=== PATIENT | male | born 1985 | race Caucasian/White ===

== ENCOUNTER 2018-05-13 22:39 | Emergency (ER) | payer BC ==
--- NOTE | 2018-05-13 22:54 | EDPHY ---
H & P Stated Complaint: R ankle swelling Source: Patient Exam Limitations: No limitations - Personal History Current Tetanus/Diphtheria Vaccine: Yes Current Tetanus Diphtheria and Acellular Pertussis (TDAP): Yes - Medical/Surgical History Hx Asthma: No Hx Chronic Respiratory Disease: No Hx Diabetes: No Hx Cardiac Disease: No Hx Renal Disease: No Hx Cirrhosis: No Hx Alcoholism: No Hx HIV/AIDS: No Hx Splenectomy or Spleen Trauma: No Other PMH: MRSA infection - Social History Smoking Status: Current every day smoker Time Seen by Provider: 05/13/18 22:48 HPI/ROS: HPI: This is a 33-year-old male who presents with Chief Complaint: Right ankle swelling Location: Right lateral ankle Quality: Swelling and redness Duration: 1 week Signs and Symptoms: No bleeding, no radiation, no numbness, no weakness, no tingling, no incontinence, + decreased range of motion, + swelling, + pain, no fever Timing: Worsening Severity: Moderate to severe Context: Patient presents with an infection on his right lateral ankle that has been worsening over the last week. He reports that there is redness, warmth , tenderness and now decreased range of motion for the last 2 days. He was seen by urgent care yesterday and started and now antibiotic but he does not remember the name. He reports that the antibiotic is not working but he is also unsure of how many days he took the antibiotic. Denies any trauma, injury. He recently traveled back and forth from [place]. Reports some right calf swelling and right calf pain. Denies fevers, discharge. Patient has a history of MRSA infection. Modifying Factors: Antibiotic, unknown name Comment: ROS: A comprehensive 10 system review of systems is otherwise negative aside from elements mentioned in the history of present illness. MEDICAL/SURGICAL/SOCIAL HISTORY: Medical history: MRSA infection, claustrophobia Surgical history: Denies Social history: Originally from [place]. Current every day smoker. CONSTITUTIONAL: Nontoxic-appearing adult white male, awake and alert, no obvious distress HEENT: Atraumatic and normocephalic. NECK: supple EXTREMITIES: 2/2 p.o. pulses, strength 5/5, right Ankle: Lateral malleolus shows moderate erythema and swelling with tenderness surrounding the area; no streaking appreciated. Plantar flexion to 50, dorsiflexion to 20. Foot inversion to 35 degree. No tenderness/swelling Anterior talofibular ligament. No tenderness/swelling Calcaneofibular ligament, no tenderness/swelling posterior talofibular ligament, no tenderness/swelling posterior inferior tibiofibular ligament. Achilles tendon intact. Mild Homans sign. Right calf is twice the size of the left calf. DIP/PIP/MCP flexion/extension intact with good light touch sensation. no deformities, no clubbing, no cyanosis or edema. NEUROLOGICAL: no focal neuro deficits. GCS 15. Light touch sensation intact. SKIN: Warm and dry, scattered annular lesions noted to bilateral lower extremities; no active drainage or bleeding.. Good capillary refill. (Myrtle Ramos) Constitutional: Initial Vital Signs Temperature (C) 36.7 C 05/13/18 22:43 Heart Rate 90 05/13/18 22:43 Respiratory Rate 16 05/13/18 22:43 Blood Pressure 129/72 H 05/13/18 22:43 O2 Sat (%) 96 05/13/18 22:43 O2 Delivery Mode Room Air Allergies/Adverse Reactions: No Known Allergies Allergy (Unverified 05/13/18 22:46) Home Medications: Medication Instructions Recorded Cephalexin [Keflex (*)] 500 mg PO TID #21 cap 05/13/18 Sulfamethox/Tmp 800/160 mg 1 tab PO BID #14 tab 05/13/18 [Bactrim Ds] Medical Decision Making - Diagnostics Imaging Results: Imaging Impressions Ankle X-Ray 05/13/18 22:56 Impression: 1. No acute osseous abnormality seen right ankle. 2. Soft tissue swelling laterally compatible with ankle sprain. Extremity Venous Study 05/13/18 22:56 Impression: No deep venous thrombosis in the right lower extremity. Findings discussed with Myrtle Ramos PAC at 23:46 hour, 05/13/2018. Procedures: Procedure: Splint placement. A right walking boot was applied by the Emergency Room low voltage technician. After application of the splint I returned and re-examined the patient. The splint was adequately immobilizing the joint and distal to the splint the patient's circulation and sensation was intact. (Myrtle Ramos) ED Course/Re-evaluation: Vital signs reviewed and stable upon arrival. No systemic signs. IV access and laboratory studies including lactic acid obtain. Right lower extremity ultrasound right ankle x-ray ordered. Patient is refusing admission for IV antibiotics despite my recommendation as failure of outpatient treatment. Will give IV vancomycin and IV Ancef in the emergency room. 2350: Called by radiologist who advised that right lower extremity ultrasound is negative for DVT. Laboratory studies reviewed and show WBC of 11.5, lactic acid 1.4, ESR 10, CRP 27.6, no signs of electrolyte imbalance/acute kidney injury. 2355: Right ankle x-ray my read shows no fracture, dislocation. + Soft tissue swelling laterally compatible with ankle sprain. Placed in walking boot, given Keflex and Bactrim, patient [facility] or return to the emergency room in 2-3 days for wound check if any worsening of symptoms. At discharge, I offered patient admission again and he refused due to "I hate needles and I am claustrophobic." He understands that his infection may progress and he could become septic or even . He is alert and oriented x4. No signs of neurovascular compromise/tenting of skin/compartment syndrome/ extremities and joints examined above and below area of concern and are neurovascularly intact. This patient was seen under the supervision of my secondary supervising physician. I evaluated care for this patient independently. Discussed this patient with Dr. Baez. (Myrtle Ramos) PHYSICIAN DOCUMENTATION: The patient was evaluated and managed by the Physician Environmental Protection Specialist. My co- signature indicates that I have reviewed this chart and I agree with the findings and plan of care as documented. I am the secondary supervising physician. (Brianda Baez) Differential Diagnosis: Ankle injury differential diagnosis includes but is not limited to tibia fracture, fibula fracture, metatarsal fracture, LisFranc fracture, achilles tendon rupture, sprain. (Myrtle Ramos) - Data Points Laboratory Results: Laboratory Results 05/13/18 23:04 05/13/18 23:04 05/13/18 05/13/18 05/13/18 23:04 23:04 23:04 WBC 11.15 10^3/uL H 10^3/uL (3.80-9.50) RBC 4.27 10^6/uL L 10^6/uL (4.40-6.38) Hgb 13.7 g/dL g/dL (13.7-17.5) Hct 40.1 % % (40.0-51.0) MCV 93.9 fL fL (81.5-99.8) MCH 32.1 pg pg (27.9-34.1) MCHC 34.2 g/dL g/dL (32.4-36.7) RDW 12.6 % % (11.5-15.2) Plt Count 416 10^3/uL H 10^3/uL (150-400) MPV 9.2 fL fL (8.7-11.7) Neut % (Auto) 59.5 % % (39.3-74.2) Lymph % (Auto) 29.7 % % (15.0-45.0) Union % (Auto) 8.3 % % (4.5-13.0) Eos % (Auto) 1.3 % % (0.6-7.6) Baso % (Auto) 0.4 % % (0.3-1.7) Nucleat RBC Rel Count 0.0 % % (0.0-0.2) Absolute Neuts (auto) 6.64 10^3/uL H 10^3/uL (1.70-6.50) Absolute Lymphs (auto) 3.31 10^3/uL H 10^3/uL (1.00-3.00) Absolute Monos (auto) 0.92 10^3/uL H 10^3/uL (0.30-0.80) Absolute Eos (auto) 0.15 10^3/uL 10^3/uL (0.03-0.40) Absolute Basos (auto) 0.04 10^3/uL 10^3/uL (0.02-0.10) Absolute Nucleated RBC 0.00 10^3/uL 10^3/uL (0-0.01) Immature Gran % 0.8 % % (0.0-1.1) Immature Gran # 0.09 10^3/uL 10^3/uL (0.00-0.10) ESR 10 MM/HR MM/HR (0-15) VBG Lactic Acid 1.4 mmol/L mmol/L (0.7-2.1) Sodium 140 mEq/L mEq/L (135-145) Potassium 3.9 mEq/L mEq/L (3.3-5.0) Chloride 104 mEq/L mEq/L (97-110) Carbon Dioxide 29 mEq/l mEq/l (22-31) Anion Gap 7 mEq/L mEq/L (6-14) BUN 10 mg/dL mg/dL (7-23) Creatinine 0.7 mg/dL mg/dL (0.7-1.3) Estimated GFR > 60 Glucose 107 mg/dL H mg/dL (70-100) Calcium 9.2 mg/dL mg/dL (8.5-10.4) C-Reactive Protein 27.6 mg/L H mg/L (<10.0) Medications Given: Discontinued Medications Cephalexin (Keflex 500 Mg Prepack#4) 1 btl TAKEHOME EDNOW ONE PRN Reason: Protocol Stop: 05/13/18 23:52 Last Admin: 05/14/18 01:18 Dose: 1 btl Cefazolin Sodium/Dextrose (Ancef 1 Gm (Premix)) 50 mls @ 200 mls/hr IV EDNOW ONE PRN Reason: Protocol Stop: 05/13/18 23:09 Last Admin: 05/13/18 23:05 Dose: 50 mls Vancomycin/Sodium Chloride (Vancomycin 1 Gm (Premix)) 250 mls @ 250 mls/hr IV EDNOW ONE PRN Reason: Protocol Stop: 05/13/18 23:53 Last Admin: 05/13/18 23:19 Dose: 250 mls Trimethoprim/Sulfamethoxazole (Bactrim Ds Prepack#2) 1 btl TAKEHOME EDNOW ONE Stop: 05/13/18 23:52 Last Admin: 05/14/18 01:18 Dose: 1 btl Departure - Departure Disposition: Home, Routine, Self-Care Clinical Impression: Cellulitis of right ankle Condition: Good Instructions: Cellulitis (ED) Additional Instructions: Wear the walking boot while out of bed until all swelling and redness have resolved. Limit use of right lower extremity as much as possible until all symptoms have resolved. Take Tylenol 650 mg every 4 hours and/or Ibuprofen 600 mg every 8 hours with food as needed for pain. Take antibiotics as directed. Do not skip a dose. Complete the full course of antibiotics. [facility] 5-7 days if no improvement at which time they will evaluate and recommend with you if conservative management versus further therapy is indicated. The x-rays obtained in the emergency department today demonstrate no evidence of an obvious fracture. The ultrasound obtained in the emergency department today demonstrates no evidence of a blood clot. Wound Care Follow-Up: Wound evaluation in [2-3] days. There is a charge for this evaluation in the Emergency Department. Referrals: [facility],. [Clinic] - 5-7 days, if not improved Prescriptions: Cephalexin [Keflex (*)] 500 mg PO TID #21 cap Sulfamethox/Tmp 800/160 mg [Bactrim Ds] 1 tab PO BID #14 tab
[2018-05-13 23:17] LABS: PLATELET COUNT 416 10^3/uL (150-400)
[2018-05-13] MEDS: VANCOMYCIN HCL/NORMAL SALINE 250 ML IV ONE (23:19)
[2018-05-14] MEDS: CEPHALEXIN 500MG PREPACK#4 BTL TAKEHOME ONE (01:18)
[2018-05-14] MEDS: SULFAMET/TMP DS PREPACK#2 BTL TAKEHOME ONE (01:18)
[2018-05-14 01:28] VITALS: BP 141/86
== END 2018-05-14 01:27 | disposition home or self-care (01) ==
DX: L03.115 Cellulitis of right lower limb (principal)
CPT/HCPCS: 96365; J0690; J3370; L4386

== ENCOUNTER 2018-06-24 00:43 | Emergency (ER) | payer BC ==
[2018-06-24] MEDS ORDERED: TDAP ADULT 0.5 ML INJ (BOOSTRIX) IM ONE (00:54)
[2018-06-24] MEDS ORDERED: IBUPROFEN 600 MG TAB PO ONE (01:40)
[2018-06-24] MEDS ORDERED: HYDROCODONE/APAP 5/325 TAB PO ONE (01:40)
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
[2018-06-24 06:31] VITALS: BP 128/80
== END 2018-06-24 06:37 | disposition home or self-care (01) ==
LOC: EDUNIT#
PROC: 3E0T3BZ Introduction of Anesthetic Agent into Peripheral Nerves and Plexi, Percutaneous Approach (ICD-10-PCS; principal; 2018-06-24)
DX: T23.251A Burn of second degree of right palm, initial encounter (principal); V87.8XXA Person injured in other specified noncollision transport accidents involving motor vehicle (traffic), initial encounter; Z59.0 Homelessness

== ENCOUNTER 2018-07-11 18:18 | Emergency (ER) | payer BC ==
[~2018-07-11 18:18] MED LIST: CEPHALEXIN 500 MG CAP PO SCH; SULFAMETHOX/TMP 800/160 MG 1 TAB PO SCH
[2018-07-11] MEDS ORDERED: SULFAMETHOX/TMP 800/160 MG 1 TAB PO ONE (18:41)
[2018-07-11] MEDS ORDERED: CEPHALEXIN 500 MG CAP PO ONE (18:41)
[2018-07-11] MEDS ORDERED: IBUPROFEN 800 MG TAB PO ONE (18:53)
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
[2018-07-11 19:34] VITALS: BP 128/77
== END 2018-07-11 19:34 | disposition home or self-care (01) ==
DX: L03.116 Cellulitis of left lower limb (principal)